=== PATIENT | female | born 1990 | race Caucasian/White ===

== ENCOUNTER 2016-03-18 00:28 | Emergency (ER) | payer MEDICAID ==
[2016-03-18] MEDS ORDERED: KETOROLAC 30 MG/ML VIAL ONE (02:51)
[2016-03-18] MEDS ORDERED: CEFTRIAXONE 1 GM VIAL ONE (02:51)
[2016-03-18] MEDS ORDERED: SODIUM CHLORIDE 0.9% 100 ML IV ONE (02:51)
[2016-03-18] MEDS ORDERED: ONDANSETRON 4 MG VIAL ONE (02:51)
[2016-03-18] MEDS ORDERED: SODIUM CHLORIDE 0.9% 1,000 ML ONE (02:51)
== END 2016-03-18 04:57 | disposition home or self-care (01) ==
LOC: ER 00:28
DX: N30.01 Acute cystitis with hematuria (principal)
CPT/HCPCS: 36415; 80053; 81001; 83690; 84703; 85025; 87088; 96361; 96365; 96375